=== PATIENT | female | born 1930 | race Caucasian/White ===

== ENCOUNTER 2016-12-04 15:00 | Emergency (ER) | payer MEDICARE, OTHER, MEDICAID ==
[~2016-12-04] VITALS: Ht 170.2 cm; Wt 70.3 kg
[~2016-12-04 15:00] MED LIST: BAYER ASPIRIN R81 MG PO; BETAGAN 2 ML2 ML OP; BYSTOLIC5 MG PO; CIPRO 500MG TA500 MG PO; Ceftriaxone 1 Gm1 GM IV; DORZOLAMIDE OP; DULCOLAX 5MG TAB5 MG PO; LEVOCETIRIZINE D5 MG PO; LISINOPRIL 20MG20 MG; LISINOPRIL10 MG PO; LOVENOX 4040 MG/0.4 SC; MULTI-VITAMIN1 EACH PO; NORVASC 10MG. T10 MG; NORVASC5 MG PO; OMNICEF 300 MG300 MG PO; PLAVIX75 MG PO; PRILOSEC40 MG PO; SPIRONOLACTONE25 MG PO; VITAMIN B12500 MCG PO; VITAMIN D2000 I1 PO; ZOCOR40 MG PO
--- NOTE | 2016-12-04 15:34 | Urgent Treatment Center Report ---
History of Present Issue Date/Time Seen by Provider 12/04/16 3399 Visit Reason Pt arrived:Wheelchair Presenting Problem:PT ADVISES THAT SHE HAS BEEN DX WITH A UTI AND HAS BEEN STARTED ON 2 DIFFERENT MEDS THAN SHE WAS UNABLE TO TAKE D/T ALLERGY. PT ADVISES THAT SHE NEEDS A NEW MED Location if Accident: Onset of symptoms date/time:/ or onset unknown for:MEDICAL HX UNKNOWN Have you (or family members/close friends) recently traveled outside the [place]? N If Yes, where/when: Have you had exposure to infectious disease within the past month? TB? Other? Specify: Patient state that she was diagnosed with UTI several weeks ago and was started on Bactrim States that when she started taking it, it made her stomach upset and she quit taking it and called her doctor and they changed the medication to Macrobid, States that she broke out in a rash and hives from allergic reaction to the medication so she decided she would just come in and get checked to see if she still has a UTI an get on medication for it if needed ALLERGIES Coded Allergies: Sulfa (Sulfonamide Antibiotics) (Mild, 12/04/16) nitrofurantoin (From MACROBID) (12/04/16) Home Medications Reported Medications NEBIVOLOL HCL (Bystolic) 5 MG PO QHS Simvastatin (Zocor) 40 MG PO QHS CEFDINIR (Cefdinir) 300 MG PO E12 Cholecalciferol (Vitamin D) 2,000 IUNITS PO DAILY Cyanocobalamin (Vitamin B12) 500 MCG PO DAILY Aspirin (Jose Aspirin Regimen) 81 MG PO DAILY Lisinopril 10 MG PO BID LEVOBUNOLOL HCL (Betagan 2 Ml) 1 DROP OP BID LEVOCETIRIZINE DIHYDROCHLORIDE (Levocetirizine Dihydrochloride) 5 MG PO DAILY History Medical History General CAD? No Angina: No [place]: No Hypertension? Yes Hyperlipidemia? Yes CHF? No DVT? No PE? No COPD? No Asthma? No Anemia? No GERD? No Gastric ulcers? No GI Bleed? No Hernia? No Thyroid Problems? No Hypothyroidism? No CVA? Yes Seizures? No Diabetes? No Renal Insuffiency? No UTI? Yes Stones? No BPH? No GB Disease: No Nephritic Syndrome? No Asplenia? No Hepatitis? Yes Sickle Cell Disease? No Arthritis? No Migraines? No Cataracts? Yes Glaucoma? Yes MRSA? No HIV? No TB? No Anxiety? No Depression? No Cancer? No More? No Immunization HX DT/Tetanus Unknown Flu Refused Pneumonia Received In Past Surgical Hx Previous Surgery?Y LEFT WRIST Family History Family HX Diabetes No CAD Yes Hypertension Yes Hyperlipidemia No Cancer No TB Yes Social History Smoking Hx Smoker: Never Smoker Tobacco: No Alcohol Alcohol: No Review of Systems All Other Systems Reviewed and Negative Genitourinary dysuria, frequency, pain. Physical Exam Vital Signs Vital Signs Date Time Temp Pulse Resp B/P Pulse O2 O2 Flow FiO2 Ox Delivery Rate 12/04 1512 98.6 69 18 142/72 97 General Appearance normal appearance, WD/WN, no apparent distress Respiratory Status Yes: trachea midline, chest symmetrical, non tender chest. No: respiratory distress. 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 No Results/Orders Laboratory Tests 12/04/16 1515: Urine Color YELLOW, Urine Appearance CLEAR, Urine pH 6.5, Ur Specific [place] 1.010, Urine Protein NEGATIVE, Urine Ketones NEGATIVE, Urine Blood TRACE-LYSED, Urine Nitrate POSITIVE H, Urine Bilirubin NEGATIVE, Urine Urobilinogen 0.2, Ur Leukocyte Esterase LARGE, Urine Glucose NEGATIVE Orders Procedure Date/time Status CULTURE, URINE 12/04 154 Active [place] URINE DIPSTICK 12/04 151 Complete Progress [facility] Progress Notes Comment Ua results reviewed and discussed with patient Departure Departure Time of Disposition 1542 Disposition DC Home or Self Care(routine) Clinical Impression Primary Impression: UTI (urinary tract infection) Qualifiers: Urinary tract infection type: site unspecified Hematuria presence: with hematuria Qualified Code: N39.0 - Urinary tract infection, site not specified Condition STABLE Referrals TAZ RIBEIRO APRN (PCP/Family) Patient Instructions DI for Urinary Tract Infection (UTI), Urinary Tract Infection Additional Instructions Drink plenty of fluids Over the counter Motrin or Tylenol Discharge Counseling Counseled pt/family regarding diagnosis, test results, medications/RX, home care, follow up needs Prescriptions Current Visit Scripts Levofloxacin (Levaquin 500MG) 500 MG PO DAILY #5 TAB at 1546
--- NOTE | 2016-12-04 15:34 | Urgent Treatment Center Report ---
History of Present Issue Date/Time Seen by Provider 12/04/16 9839 Visit Reason Pt arrived:Wheelchair Presenting Problem:PT ADVISES THAT SHE HAS BEEN DX WITH A UTI AND HAS BEEN STARTED ON 2 DIFFERENT MEDS THAN SHE WAS UNABLE TO TAKE D/T ALLERGY. PT ADVISES THAT SHE NEEDS A NEW MED Location if Accident: Onset of symptoms date/time:/ or onset unknown for:MEDICAL HX UNKNOWN Have you (or family members/close friends) recently traveled outside the [place]? N If Yes, where/when: Have you had exposure to infectious disease within the past month? TB? Other? Specify: Patient state that she was diagnosed with UTI several weeks ago and was started on Bactrim States that when she started taking it, it made her stomach upset and she quit taking it and called her doctor and they changed the medication to Macrobid, States that she broke out in a rash and hives from allergic reaction to the medication so she decided she would just come in and get checked to see if she still has a UTI an get on medication for it if needed ALLERGIES Coded Allergies: Sulfa (Sulfonamide Antibiotics) (Mild, 12/04/16) nitrofurantoin (From MACROBID) (12/04/16) Home Medications Reported Medications NEBIVOLOL HCL (Bystolic) 5 MG PO QHS Simvastatin (Zocor) 40 MG PO QHS CEFDINIR (Cefdinir) 300 MG PO E12 Cholecalciferol (Vitamin D) 2,000 IUNITS PO DAILY Cyanocobalamin (Vitamin B12) 500 MCG PO DAILY Aspirin (Jose Aspirin Regimen) 81 MG PO DAILY Lisinopril 10 MG PO BID LEVOBUNOLOL HCL (Betagan 2 Ml) 1 DROP OP BID LEVOCETIRIZINE DIHYDROCHLORIDE (Levocetirizine Dihydrochloride) 5 MG PO DAILY History Medical History General CAD? No Angina: No [place]: No Hypertension? Yes Hyperlipidemia? Yes CHF? No DVT? No PE? No COPD? No Asthma? No Anemia? No GERD? No Gastric ulcers? No GI Bleed? No Hernia? No Thyroid Problems? No Hypothyroidism? No CVA? Yes Seizures? No Diabetes? No Renal Insuffiency? No UTI? Yes Stones? No BPH? No GB Disease: No Nephritic Syndrome? No Asplenia? No Hepatitis? Yes Sickle Cell Disease? No Arthritis? No Migraines? No Cataracts? Yes Glaucoma? Yes MRSA? No HIV? No TB? No Anxiety? No Depression? No Cancer? No More? No Immunization HX DT/Tetanus Unknown Flu Refused Pneumonia Received In Past Surgical Hx Previous Surgery?Y LEFT WRIST Family History Family HX Diabetes No CAD Yes Hypertension Yes Hyperlipidemia No Cancer No TB Yes Social History Smoking Hx Smoker: Never Smoker Tobacco: No Alcohol Alcohol: No Review of Systems All Other Systems Reviewed and Negative Genitourinary dysuria, frequency, pain. Physical Exam Vital Signs Vital Signs Date Time Temp Pulse Resp B/P Pulse O2 O2 Flow FiO2 Ox Delivery Rate 12/04 1512 98.6 69 18 142/72 97 General Appearance normal appearance, WD/WN, no apparent distress Respiratory Status Yes: trachea midline, chest symmetrical, non tender chest. No: respiratory distress. 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 No Results/Orders Laboratory Tests 12/04/16 1515: Urine Color YELLOW, Urine Appearance CLEAR, Urine pH 6.5, Ur Specific [place] 1.010, Urine Protein NEGATIVE, Urine Ketones NEGATIVE, Urine Blood TRACE-LYSED, Urine Nitrate POSITIVE H, Urine Bilirubin NEGATIVE, Urine Urobilinogen 0.2, Ur Leukocyte Esterase LARGE, Urine Glucose NEGATIVE Orders Procedure Date/time Status CULTURE, URINE 12/04 154 Active [place] URINE DIPSTICK 12/04 151 Complete Progress [facility] Progress Notes Comment Ua results reviewed and discussed with patient Departure Departure Time of Disposition 1542 Disposition DC Home or Self Care(routine) Clinical Impression Primary Impression: UTI (urinary tract infection) Qualifiers: Urinary tract infection type: site unspecified Hematuria presence: with hematuria Qualified Code: N39.0 - Urinary tract infection, site not specified Condition STABLE Referrals TAZ RIBEIRO APRN (PCP/Family) Patient Instructions DI for Urinary Tract Infection (UTI), Urinary Tract Infection Additional Instructions Drink plenty of fluids Over the counter Motrin or Tylenol Discharge Counseling Counseled pt/family regarding diagnosis, test results, medications/RX, home care, follow up needs Prescriptions Current Visit Scripts Levofloxacin (Levaquin 500MG) 500 MG PO DAILY #5 TAB at 1546
[2016-12-04 15:42] LABS: URINE BILIRUBIN - DIPSTICK NEGATIVE (NEG); URINE BLOOD TRACE-LYSED (NEG)
[2016-12-04] MEDS ORDERED: LEVAQUIN500 MG PO (15:44)
[2016-12-04 16:00] VITALS: BP 142/72
== END 2016-12-04 16:00 | disposition home or self-care (01) ==
LOC: UTC 15:00 → ER 15:07
PROVIDERS: Nurse Practitioner
DX: N39.0 Urinary tract infection, site not specified (principal); R31.9 Hematuria, unspecified; I10 Essential (primary) hypertension; E78.5 Hyperlipidemia, unspecified; Z79.82 Long term (current) use of aspirin; Z79.899 Other long term (current) drug therapy